=== PATIENT | male | born 1995 | race Two or more races ===

== ENCOUNTER 2023-07-13 22:13 | Emergency (ER) | payer OTHER ==
[~2023-07-13] VITALS: Ht 175.3 cm; Wt 97.7 kg
[2023-07-13 23:15] VITALS: BP 128/89; PULSE 74; RESP 17; TEMP 98.1; O2SAT 96
[2023-07-14] MEDS ORDERED: methylPREDNISolone ACETATE 80 MG/ML VL IM ONE (02:15)
[2023-07-14] MEDS ORDERED: KETOROLAC TROMETH 60MG/2ML VIAL IM ONE (02:15)
[2023-07-14] MEDS ORDERED: METHOCARBAMOL 500 MG TAB PO ONE (02:15)
[2023-07-14] MEDS ORDERED: METH-1181 PO (03:00)
[2023-07-14] MEDS ORDERED: IBUP-1456 PO (03:00)
== END 2023-07-14 03:32 | disposition home or self-care (01) ==
LOC: ER 22:16
DX: S33.5XXA Sprain of ligaments of lumbar spine, initial encounter (principal); Z79.1 Long term (current) use of non-steroidal anti-inflammatories (NSAID); Z79.899 Other long term (current) drug therapy; X50.0XXA Overexertion from strenuous movement or load, initial encounter; Y93.89 Activity, other specified; Y92.89 Other specified places as the place of occurrence of the external cause; Y99.8 Other external cause status
CPT/HCPCS: 72100; 81002; 96372; 99284; J1040; J1885